=== PATIENT | male | born 1980 | race Caucasian/White ===

== ENCOUNTER 2020-11-20 02:01 | Emergency (ER) | payer OTHER ==
[~2020-11-20] VITALS: Ht 180.3 cm; Wt 81.6 kg
--- NOTE | 2020-11-20 02:19 | NUR ---
BIBS C/O NECK PAIN S/P WORKING OUT. -NAUSEA. FIRST FELT PAIN ON 11/18. A/OX4. TOLERATING ROOM AIR WELL.
[2020-11-20] MEDS ORDERED: KETOROLAC TROMETHAMINE INJ 60 MG/2 ML VIAL IM ONE ×2 (02:29→02:30)
[2020-11-20] MEDS ORDERED: CARISOPRODOL 350 MG TABLET ONE (02:30)
[2020-11-20] MEDS ORDERED: CARISOPRODOL 350 MG TABLET PO ONE (02:30)
[2020-11-20] MEDS ORDERED: DEXAMETHASONE SOD PHOSPHATE 4 MG/ML VIAL IM ONE (02:30)
[2020-11-20] MEDS ORDERED: DEXAMETHASONE SOD PHOSPHATE 4 MG/ML VIAL ONE (02:30)
--- NOTE | 2020-11-20 02:39 | NUR ---
PT TAKE TO CT
--- NOTE | 2020-11-20 02:49 | NUR ---
PT RETURNED TO ER ROOM 2
[2020-11-20] MEDS ORDERED: CARI350T PO (03:30)
[2020-11-20] MEDS ORDERED: HYDR-3972 PO (03:30)
[2020-11-20] MEDS ORDERED: PRED50TA PO (03:30)
[2020-11-20] MEDS ORDERED: IBUP-1957 PO (03:30)
--- NOTE | 2020-11-20 03:32 | NUR ---
Patient discharged to home in stable condition. Written and verbal after care instructions given. Patient verbalizes understanding of instruction. Pt ambulatory with a steady gait
[2020-11-20 03:41] VITALS: BP 116/77
== END 2020-11-20 03:32 | disposition home or self-care (01) ==
LOC: ER 02:11
DX: M62.838 Other muscle spasm (principal); M77.9 Enthesopathy, unspecified; Z79.899 Other long term (current) drug therapy
CPT/HCPCS: 72125; 96372 ×2; 99284; J1100; J1885

== ENCOUNTER 2021-01-17 13:55 | Emergency (ER) | payer MEDICAID, OTHER ==
[~2021-01-17] VITALS: Ht 180.3 cm; Wt 81.6 kg
[~2021-01-17 13:55] MED LIST: CARI350T PO; HYDR-3972 PO; IBUP-1957 PO; PRED50TA PO
[2021-01-17 14:27] VITALS: BP 111/59
--- NOTE | 2021-01-17 14:47 | NUR ---
Patient discharged to home in stable condition. Written and verbal after care instructions given. Patient verbalizes understanding of instruction.
== END 2021-01-17 14:47 | disposition home or self-care (01) ==
LOC: ER 14:03
DX: S46.211A Strain of muscle, fascia and tendon of other parts of biceps, right arm, initial encounter (principal); Z79.899 Other long term (current) drug therapy; X50.0XXA Overexertion from strenuous movement or load, initial encounter; Y93.89 Activity, other specified; Y92.89 Other specified places as the place of occurrence of the external cause; Y99.8 Other external cause status